=== PATIENT | male | born 1940 | race Caucasian/White ===

== ENCOUNTER 2017-10-13 12:24 | Inpatient (IN) | payer OTHER ==
[~2017-10-13] VITALS: Ht 170.2 cm; Wt 54.5 kg
[~2017-10-13 12:24] MED LIST: CHOL100062 PO; MAGN400C PO; MEMA10TA PO; METO25TA6 PO; OLAN2.5T3 PO; OMEP40CA37 PO; POLY119P2 PO; RIVA20TA PO; SIMV40TA PO; THIA250T2 PO
[2017-10-13] MEDS ORDERED: verapamil 2.5 mg/ml inj IV ONE (13:45)
[2017-10-13 13:59] LABS: BASOPHILS # (AUTO) 0.1 X10'3 (0-0.2); BASOPHILS % (AUTO) 0.7 % (0-1); EOSINOPHILS % (AUTO) 0.5 % (0-6); HEMATOCRIT 40.3 % (42.0-52.0); HEMOGLOBIN 13.6 g/dl (14.0-17.9); LYMPHOCYTES # (AUTO) 1.2 X10'3 (1.1-4.8); LYMPHOCYTES % (AUTO) 14.5 % (21-51); MEAN CORPUSCULAR HEMOGLOBIN 31.4 PG (27.0-31.0); MEAN CORPUSCULAR HGB CONC 33.7 % (33.0-36.5); MEAN CORPUSCULAR VOLUME 93.3 FL (78-98); MEAN PLATELET VOLUME 7.7 FL (7.4-10.4); MONOCYTES # (AUTO) 0.7 X10'3 (0-0.9); MONOCYTES % (AUTO) 8.6 % (2-12); NEUTROPHILS # (AUTO) 6.3 X10'3 (1.8-7.7); NEUTROPHILS % (AUTO) 75.7 % (42-75); PLATELET COUNT 320 X10'3 (140-440); RED BLOOD COUNT 4.32 X10'6 (4.70-6.10); RED CELL DISTRIBUTION WIDTH 15.4 % (11.5-14.5); WHITE BLOOD COUNT 8.3 X10'3 (4.5-11.0)
[2017-10-13 14:08] LABS: D-DIMER 1.93 MG/L FEU (0-0.50)
[2017-10-13 14:11] LABS: CLARITY,URINE CLOUDY (Clear); COLOR,URINE YELLOW (Yellow); GLUCOSE, URINE NEGATIVE (Neg); KETONES,URINE TRACE mg/dl (Neg); LEUKOCYTE ESTERASE ,URINE MODERATE (Neg); NITRITES, URINE NEGATIVE (Neg); OCCULT BLOOD,URINE LARGE (Neg); PROTEIN,URINE 100 mg/dl (Neg)
[2017-10-13 14:15] LABS: UA COLLECTION TYPE OTHER
[2017-10-13 14:15] LABS: ALANINE AMINOTRANSFERASE 15 U/L (12-78); ALBUMIN 3.4 G/DL (3.4-5.0); ALBUMIN/GLOBULIN RATIO 0.6 (1.1-1.5); ALKALINE PHOSPHATASE 69 IU/L (46-116); ANION GAP 12 (8-16); ASPARTATE AMINO TRANSFERASE 22 U/L (10-37); BILIRUBIN,TOTAL 0.5 MG/DL (0.1-1.0); BLOOD UREA NITROGEN 22 MG/DL (7-18); BUN/CREATININE RATIO 17.6 (5.4-32.0); CALCIUM 9.4 MG/DL (8.5-10.1); CHLORIDE 106 MMOL/L (99-107); CREATININE 1.25 MG/DL (0.60-1.10); GLUCOSE 118 MG/DL (70-104); POTASSIUM 3.6 MMOL/L (3.5-5.1); SODIUM 146 MMOL/L (135-145); TOTAL CARBON DIOXIDE 27.8 MMOL/L (24-32); TOTAL PROTEIN 8.9 G/DL (6.4-8.2); eGFR 56 ML/MIN
[2017-10-13 14:27] LABS: BACTERIA,URINE 4+ /HPF (Neg); SQUAMOUS EPITHELIAL CELL,UR FEW /LPF (FEW); WBC,URINE TNTC /HPF (0-4)
[2017-10-13 14:28] LABS: RBC,URINE 20-50 /HPF (0-2)
[2017-10-13] MEDS ORDERED: CefTRIAXone 2gm/D5W 50ml 50 ML IV ONE (15:10)
[2017-10-13] MEDS ORDERED: normal saline 1000ML IV soln IVB ONE (15:10)
[2017-10-13] MEDS ORDERED: iohexol 350MG/ML 100ml bottle IV ONE (15:19)
[2017-10-13] MEDS ORDERED: potassium Cl 20mEq in NS 1,000 ML IV SCH (15:32)
[2017-10-13] MEDS ORDERED: potassium Cl 40MEQ/NS 500ml 500 ML IV PRN ×2 (15:35)
[2017-10-13] MEDS ORDERED: magnesium hydroxide 30ml (MOM) UD suspension PO PRN (15:35)
[2017-10-13] MEDS ORDERED: magnesium 2GM in 50ml NS 50 ML IV PRN (15:35)
[2017-10-13] MEDS ORDERED: ondansetron/PF 4mg/2ml inj IV PRN (15:35)
[2017-10-13] MEDS ORDERED: potassium Cl 20 mEq SR tablet PO PRN ×2 (15:35)
[2017-10-13] MEDS ORDERED: mag hydrox/Alum hydrox/simeth 30ml oral suspension PO PRN (15:35)
[2017-10-13] MEDS ORDERED: magnesium 4gm in 100ml NS 100 ML IV PRN (15:35)
[2017-10-13] MEDS ORDERED: heparin 10,000 units/1 ML INJ IV ONE (15:35)
[2017-10-13] MEDS ORDERED: bisacodyl 10mg suppository rectal RC PRN (15:35)
[2017-10-13] MEDS ORDERED: acetaminophen 325mg tablet PO PRN (15:35)
[2017-10-13] MEDS ORDERED: magnesium Cl slow-release 64mg tablet PO PRN (15:35)
[2017-10-13] MEDS: folic acid 1mg tablet PO SCH (15:40)
[2017-10-13] MEDS ORDERED: LORazepam 2 mg/ml vial IV PRN ×2 (15:40→19:30)
[2017-10-13] MEDS: aspirin 325mg tablet, delayed-release (Ecotrin) PO SCH (15:45)
[2017-10-13] MEDS ORDERED: magnesium/D5W IVPB 100 ML IV PRN (15:45)
[2017-10-13] MEDS: potassium cl 20mEq in 1/2 NS 1,000 ML IV SCH (15:55)
[2017-10-13 16:03] LABS: PARTIAL THROMBOPLASTIN TIME 27 SECONDS (22-32)
[2017-10-13 16:04] LABS: CREATINE KINASE 111 U/L (39-308)
[2017-10-13 18:00] VITALS: BP 115/65
[2017-10-13] MEDS: diltiazem-NS 100mg/100ml 100 ML IV PRN (18:00)
[2017-10-13 19:00] VITALS: BP 120/60
[2017-10-13] MEDS: docusate sod 100mg capsule PO SCH (19:46)
[2017-10-13] MEDS: heparin, porcine 5000 units/ml vial SQ SCH (19:46)
[2017-10-13] MEDS: memantine 5mg tablet PO SCH (19:47)
[2017-10-13 21:00] VITALS: BP 147/102
[2017-10-13] MEDS: OLANZapine 2.5MG tablet PO SCH (21:00)
[2017-10-13] MEDS: atorvastatin 20mg tablet PO SCH (21:00)
[2017-10-13] MEDS: magnesium oxide 400mg tablet PO SCH (21:00)
[2017-10-13] MEDS: LORazepam 2 mg/ml vial IV PRN (22:10)
[2017-10-13] MEDS: thiamine 100mg tablet PO SCH (22:18)
[2017-10-13] MEDS: vitamin D (cholecalciferol) 1,000 unit tablet PO SCH (22:19)
[2017-10-13 23:00] VITALS: BP 138/73
[2017-10-14] VITALS (13 sets, daily range): BP systolic 98–165; BP diastolic 51–90
[2017-10-14] MEDS: LORazepam 2 mg/ml vial IV PRN ×2 (04:24→21:50)
[2017-10-14] MEDS: potassium cl 20mEq in 1/2 NS 1,000 ML IV SCH ×3 (04:25→21:25)
[2017-10-14 05:27] LABS: BASOPHILS % (AUTO) 0.4 % (0-1); EOSINOPHILS # (AUTO) 0.1 X10'3 (0-0.9); EOSINOPHILS % (AUTO) 1.5 % (0-6); HEMATOCRIT 35.6 % (42.0-52.0); HEMOGLOBIN 12.1 g/dl (14.0-17.9); LYMPHOCYTES # (AUTO) 1.5 X10'3 (1.1-4.8); LYMPHOCYTES % (AUTO) 22.1 % (21-51); MEAN CORPUSCULAR HEMOGLOBIN 31.5 PG (27.0-31.0); MEAN CORPUSCULAR HGB CONC 33.9 % (33.0-36.5); MEAN CORPUSCULAR VOLUME 92.9 FL (78-98); MEAN PLATELET VOLUME 7.6 FL (7.4-10.4); MONOCYTES # (AUTO) 0.6 X10'3 (0-0.9); MONOCYTES % (AUTO) 9.7 % (2-12); NEUTROPHILS # (AUTO) 4.3 X10'3 (1.8-7.7); NEUTROPHILS % (AUTO) 66.3 % (42-75); PLATELET COUNT 275 X10'3 (140-440); RED BLOOD COUNT 3.83 X10'6 (4.70-6.10); RED CELL DISTRIBUTION WIDTH 15.1 % (11.5-14.5); WHITE BLOOD COUNT 6.6 X10'3 (4.5-11.0)
[2017-10-14 05:39] LABS: ALBUMIN 2.9 G/DL (3.4-5.0); ANION GAP 12 (8-16); BLOOD UREA NITROGEN 22 MG/DL (7-18); BUN/CREATININE RATIO 23.9 (5.4-32.0); CALCIUM 8.9 MG/DL (8.5-10.1); CHLORIDE 109 MMOL/L (99-107); CREATININE 0.92 MG/DL (0.60-1.10); GLUCOSE 100 MG/DL (70-104); MAGNESIUM 1.8 MG/DL (1.5-2.4); POTASSIUM 3.6 MMOL/L (3.5-5.1); SODIUM 146 MMOL/L (135-145); TOTAL CARBON DIOXIDE 24.6 MMOL/L (24-32); eGFR 80 ML/MIN
[2017-10-14] MEDS: CefTRIAXone/D5W-Rocephin 1gm 50 ML IV SCH (07:12)
[2017-10-14] MEDS: diltiazem-NS 100mg/100ml 100 ML IV PRN (07:13)
[2017-10-14] MEDS: K and/or MAG REPLACEMENT MC SCH (09:26)
[2017-10-14] MEDS: docusate sod 100mg capsule PO SCH ×2 (09:26→19:29)
[2017-10-14] MEDS: aspirin 325mg tablet, delayed-release (Ecotrin) PO SCH (09:26)
[2017-10-14] MEDS: folic acid 1mg tablet PO SCH (09:27)
[2017-10-14] MEDS: polyethylene glycol 3350 17gm powd pack PO SCH (09:27)
[2017-10-14] MEDS: memantine 5mg tablet PO SCH ×2 (09:27→19:25)
[2017-10-14] MEDS: heparin, porcine 5000 units/ml vial SQ SCH ×2 (09:28→21:46)
[2017-10-14] MEDS: pantoprazole 40mg Tablet.DR PO SCH (09:28)
[2017-10-14] MEDS: diltiazem 30mg tablet PO SCH ×2 (13:50→19:25)
[2017-10-14] MEDS: lactobacillus rhamnosus 10,000 MMU CELLS/CAPSULE PO SCH (19:32)
[2017-10-14] MEDS: thiamine 100mg tablet PO SCH (20:27)
[2017-10-14] MEDS: magnesium oxide 400mg tablet PO SCH (20:27)
[2017-10-14] MEDS: vitamin D (cholecalciferol) 1,000 unit tablet PO SCH (20:27)
[2017-10-14] MEDS: OLANZapine 2.5MG tablet PO SCH (20:28)
[2017-10-14] MEDS: atorvastatin 20mg tablet PO SCH (20:28)
[2017-10-15] VITALS (13 sets, daily range): BP systolic 91–122; BP diastolic 52–93
[2017-10-15] MEDS: diltiazem-NS 100mg/100ml 100 ML IV PRN ×2 (01:56→11:00)
[2017-10-15] MEDS: diltiazem 30mg tablet PO SCH ×4 (01:56→20:07)
[2017-10-15 05:45] LABS: ALBUMIN 2.9 G/DL (3.4-5.0); ANION GAP 11 (8-16); BLOOD UREA NITROGEN 18 MG/DL (7-18); BUN/CREATININE RATIO 18.2 (5.4-32.0); CHLORIDE 106 MMOL/L (99-107); CREATININE 0.99 MG/DL (0.60-1.10); GLUCOSE 91 MG/DL (70-104); MAGNESIUM 1.8 MG/DL (1.5-2.4); POTASSIUM 4.1 MMOL/L (3.5-5.1); SODIUM 142 MMOL/L (135-145); TOTAL CARBON DIOXIDE 24.7 MMOL/L (24-32); eGFR 73 ML/MIN
[2017-10-15 05:46] LABS: BASOPHILS % (AUTO) 0 % (0-1); EOSINOPHILS # (AUTO) 0.1 X10'3 (0-0.9); EOSINOPHILS % (AUTO) 0.9 % (0-6); HEMATOCRIT 35.7 % (42.0-52.0); LYMPHOCYTES # (AUTO) 1.1 X10'3 (1.1-4.8); LYMPHOCYTES % (AUTO) 8.8 % (21-51); MEAN CORPUSCULAR HEMOGLOBIN 31.5 PG (27.0-31.0); MEAN CORPUSCULAR HGB CONC 33.7 % (33.0-36.5); MEAN CORPUSCULAR VOLUME 93.4 FL (78-98); MEAN PLATELET VOLUME 8.7 FL (7.4-10.4); MONOCYTES # (AUTO) 0.7 X10'3 (0-0.9); MONOCYTES % (AUTO) 5.1 % (2-12); NEUTROPHILS % (AUTO) 85.2 % (42-75); PLATELET COUNT 248 X10'3 (140-440); RED BLOOD COUNT 3.82 X10'6 (4.70-6.10); RED CELL DISTRIBUTION WIDTH 15.1 % (11.5-14.5)
[2017-10-15] MEDS: lactobacillus rhamnosus 10,000 MMU CELLS/CAPSULE PO SCH ×3 (07:50→20:08)
[2017-10-15] MEDS: pantoprazole 40mg Tablet.DR PO SCH ×2 (07:50→08:00)
[2017-10-15] MEDS: docusate sod 100mg capsule PO SCH ×3 (07:50→20:07)
[2017-10-15] MEDS: aspirin 325mg tablet, delayed-release (Ecotrin) PO SCH (07:50)
[2017-10-15] MEDS: folic acid 1mg tablet PO SCH (07:50)
[2017-10-15] MEDS: memantine 5mg tablet PO SCH ×2 (07:50→20:07)
[2017-10-15] MEDS: CefTRIAXone/D5W-Rocephin 1gm 50 ML IV SCH (07:51)
[2017-10-15] MEDS: HYDROcodone/acetaminophen 5mg/325mg tablet PO PRN (07:51)
[2017-10-15] MEDS: heparin, porcine 5000 units/ml vial SQ SCH ×2 (08:00→20:12)
[2017-10-15] MEDS: K and/or MAG REPLACEMENT MC SCH (08:00)
[2017-10-15] MEDS: polyethylene glycol 3350 17gm powd pack PO SCH (08:05)
[2017-10-15] MEDS: levoFLOXACIN-Levaquin 250mg/D5 50 ML IV SCH (09:19)
[2017-10-15] MEDS: potassium cl 20mEq in 1/2 NS 1,000 ML IV SCH ×2 (11:20→23:38)
[2017-10-15] MEDS: vitamin D (cholecalciferol) 1,000 unit tablet PO SCH (20:07)
[2017-10-15] MEDS: magnesium oxide 400mg tablet PO SCH (20:09)
[2017-10-15] MEDS: thiamine 100mg tablet PO SCH (20:09)
[2017-10-15] MEDS: atorvastatin 20mg tablet PO SCH (20:10)
[2017-10-15] MEDS: OLANZapine 2.5MG tablet PO SCH (20:10)
[2017-10-16] VITALS (12 sets, daily range): BP systolic 92–145; BP diastolic 48–94
[2017-10-16] MEDS: diltiazem 30mg tablet PO SCH ×4 (03:47→19:35)
[2017-10-16] MEDS: diltiazem-NS 100mg/100ml 100 ML IV PRN (03:52)
[2017-10-16 05:39] LABS: BASOPHILS # (AUTO) 0.1 X10'3 (0-0.2); BASOPHILS % (AUTO) 0.6 % (0-1); EOSINOPHILS # (AUTO) 0.2 X10'3 (0-0.9); EOSINOPHILS % (AUTO) 2.1 % (0-6); HEMATOCRIT 32.7 % (42.0-52.0); LYMPHOCYTES # (AUTO) 1.3 X10'3 (1.1-4.8); LYMPHOCYTES % (AUTO) 16.3 % (21-51); MEAN CORPUSCULAR HEMOGLOBIN 31.1 PG (27.0-31.0); MEAN CORPUSCULAR HGB CONC 33.5 % (33.0-36.5); MEAN CORPUSCULAR VOLUME 92.9 FL (78-98); MEAN PLATELET VOLUME 8.3 FL (7.4-10.4); MONOCYTES # (AUTO) 0.4 X10'3 (0-0.9); MONOCYTES % (AUTO) 4.7 % (2-12); NEUTROPHILS # (AUTO) 6.1 X10'3 (1.8-7.7); NEUTROPHILS % (AUTO) 76.3 % (42-75); PLATELET COUNT 231 X10'3 (140-440); RED BLOOD COUNT 3.52 X10'6 (4.70-6.10); RED CELL DISTRIBUTION WIDTH 15.1 % (11.5-14.5)
[2017-10-16 05:43] LABS: ALBUMIN 2.7 G/DL (3.4-5.0); ANION GAP 10 (8-16); BLOOD UREA NITROGEN 10 MG/DL (7-18); BUN/CREATININE RATIO 14.7 (5.4-32.0); CALCIUM 8.4 MG/DL (8.5-10.1); CHLORIDE 103 MMOL/L (99-107); CREATININE 0.68 MG/DL (0.60-1.10); GLUCOSE 106 MG/DL (70-104); MAGNESIUM 1.9 MG/DL (1.5-2.4); POTASSIUM 3.7 MMOL/L (3.5-5.1); SODIUM 138 MMOL/L (135-145); TOTAL CARBON DIOXIDE 25.3 MMOL/L (24-32); eGFR > 90 ML/MIN
[2017-10-16] MEDS: K and/or MAG REPLACEMENT MC SCH (07:35)
[2017-10-16] MEDS: lactobacillus rhamnosus 10,000 MMU CELLS/CAPSULE PO SCH ×2 (07:59→19:35)
[2017-10-16] MEDS: folic acid 1mg tablet PO SCH (07:59)
[2017-10-16] MEDS: pantoprazole 40mg Tablet.DR PO SCH (07:59)
[2017-10-16] MEDS: polyethylene glycol 3350 17gm powd pack PO SCH (07:59)
[2017-10-16] MEDS: docusate sod 100mg capsule PO SCH ×2 (07:59→19:36)
[2017-10-16] MEDS: aspirin 325mg tablet, delayed-release (Ecotrin) PO SCH (07:59)
[2017-10-16] MEDS: levoFLOXACIN-Levaquin 250mg/D5 50 ML IV SCH (08:00)
[2017-10-16] MEDS: memantine 5mg tablet PO SCH ×2 (08:00→19:35)
[2017-10-16] MEDS: heparin, porcine 5000 units/ml vial SQ SCH ×2 (08:10→19:36)
[2017-10-16] MEDS: atorvastatin 20mg tablet PO SCH (19:35)
[2017-10-16] MEDS: magnesium oxide 400mg tablet PO SCH (19:36)
[2017-10-16] MEDS: thiamine 100mg tablet PO SCH (19:36)
[2017-10-16] MEDS: vitamin D (cholecalciferol) 1,000 unit tablet PO SCH (19:36)
[2017-10-16] MEDS: OLANZapine 2.5MG tablet PO SCH (19:36)
[2017-10-16] MEDS: HYDROcodone/acetaminophen 5mg/325mg tablet PO PRN (23:09)
[2017-10-17] MEDS: potassium cl 20mEq in 1/2 NS 1,000 ML IV SCH ×3 (00:06→21:07)
[2017-10-17] MEDS: LORazepam 2 mg/ml vial IV PRN (00:06)
[2017-10-17] MEDS: diltiazem 30mg tablet PO SCH ×4 (02:21→21:07)
[2017-10-17 03:00] VITALS: BP 140/70
[2017-10-17 06:00] VITALS: BP 135/94
[2017-10-17 06:19] LABS: BASOPHILS % (AUTO) 0.3 % (0-1); EOSINOPHILS # (AUTO) 0.2 X10'3 (0-0.9); EOSINOPHILS % (AUTO) 2.6 % (0-6); LYMPHOCYTES # (AUTO) 1.3 X10'3 (1.1-4.8); LYMPHOCYTES % (AUTO) 21.4 % (21-51); MEAN CORPUSCULAR HEMOGLOBIN 31.6 PG (27.0-31.0); MEAN CORPUSCULAR HGB CONC 34.1 % (33.0-36.5); MEAN CORPUSCULAR VOLUME 92.4 FL (78-98); MEAN PLATELET VOLUME 8.2 FL (7.4-10.4); MONOCYTES # (AUTO) 0.5 X10'3 (0-0.9); MONOCYTES % (AUTO) 8.2 % (2-12); NEUTROPHILS # (AUTO) 4.2 X10'3 (1.8-7.7); NEUTROPHILS % (AUTO) 67.5 % (42-75); PLATELET COUNT 247 X10'3 (140-440); RED BLOOD COUNT 3.79 X10'6 (4.70-6.10); RED CELL DISTRIBUTION WIDTH 15.2 % (11.5-14.5); WHITE BLOOD COUNT 6.3 X10'3 (4.5-11.0)
[2017-10-17 06:36] LABS: ALBUMIN 2.9 G/DL (3.4-5.0); ANION GAP 10 (8-16); BLOOD UREA NITROGEN 5 MG/DL (7-18); BUN/CREATININE RATIO 7.7 (5.4-32.0); CHLORIDE 106 MMOL/L (99-107); CREATININE 0.65 MG/DL (0.60-1.10); GLUCOSE 101 MG/DL (70-104); MAGNESIUM 2.1 MG/DL (1.5-2.4); POTASSIUM 4.1 MMOL/L (3.5-5.1); SODIUM 142 MMOL/L (135-145); TOTAL CARBON DIOXIDE 26.2 MMOL/L (24-32); eGFR > 90 ML/MIN
[2017-10-17] MEDS: K and/or MAG REPLACEMENT MC SCH (08:00)
[2017-10-17] MEDS: levoFLOXACIN-Levaquin 250mg/D5 50 ML IV SCH (08:22)
[2017-10-17] MEDS: memantine 5mg tablet PO SCH ×2 (08:23→21:07)
[2017-10-17] MEDS: aspirin 325mg tablet, delayed-release (Ecotrin) PO SCH (08:23)
[2017-10-17] MEDS: heparin, porcine 5000 units/ml vial SQ SCH ×2 (08:23→21:08)
[2017-10-17] MEDS: polyethylene glycol 3350 17gm powd pack PO SCH (08:23)
[2017-10-17] MEDS: lactobacillus rhamnosus 10,000 MMU CELLS/CAPSULE PO SCH ×2 (08:24→21:07)
[2017-10-17] MEDS: pantoprazole 40mg Tablet.DR PO SCH (08:24)
[2017-10-17] MEDS: folic acid 1mg tablet PO SCH (08:24)
[2017-10-17] MEDS: docusate sod 100mg capsule PO SCH ×2 (08:24→21:07)
[2017-10-17 11:00] VITALS: BP 121/73
[2017-10-17 15:00] VITALS: BP 128/62
[2017-10-17 18:00] VITALS: BP 129/92
[2017-10-17] MEDS: OLANZapine 2.5MG tablet PO SCH (21:07)
[2017-10-17] MEDS: magnesium oxide 400mg tablet PO SCH (21:07)
[2017-10-17] MEDS: vitamin D (cholecalciferol) 1,000 unit tablet PO SCH (21:07)
[2017-10-17] MEDS: thiamine 100mg tablet PO SCH (21:07)
[2017-10-17] MEDS: atorvastatin 20mg tablet PO SCH (21:07)
[2017-10-17 22:00] VITALS: BP 101/60
[2017-10-18] MEDS: LORazepam 2 mg/ml vial IV PRN (00:40)
[2017-10-18 02:00] VITALS: BP 156/79
[2017-10-18] MEDS: diltiazem 30mg tablet PO SCH ×4 (02:17→20:09)
[2017-10-18 05:58] LABS: BASOPHILS % (AUTO) 0.2 % (0-1); EOSINOPHILS # (AUTO) 0.1 X10'3 (0-0.9); EOSINOPHILS % (AUTO) 1.8 % (0-6); HEMATOCRIT 35.8 % (42.0-52.0); HEMOGLOBIN 12.2 g/dl (14.0-17.9); LYMPHOCYTES # (AUTO) 1.4 X10'3 (1.1-4.8); LYMPHOCYTES % (AUTO) 19.6 % (21-51); MEAN CORPUSCULAR HEMOGLOBIN 31.5 PG (27.0-31.0); MEAN CORPUSCULAR VOLUME 92.6 FL (78-98); MEAN PLATELET VOLUME 7.8 FL (7.4-10.4); MONOCYTES # (AUTO) 0.5 X10'3 (0-0.9); MONOCYTES % (AUTO) 6.4 % (2-12); NEUTROPHILS # (AUTO) 5.3 X10'3 (1.8-7.7); PLATELET COUNT 307 X10'3 (140-440); RED BLOOD COUNT 3.87 X10'6 (4.70-6.10); RED CELL DISTRIBUTION WIDTH 15.2 % (11.5-14.5); WHITE BLOOD COUNT 7.3 X10'3 (4.5-11.0)
[2017-10-18 06:26] LABS: ALBUMIN 3.1 G/DL (3.4-5.0); ANION GAP 9 (8-16); BLOOD UREA NITROGEN 8 MG/DL (7-18); BUN/CREATININE RATIO 10.1 (5.4-32.0); CALCIUM 9.4 MG/DL (8.5-10.1); CHLORIDE 104 MMOL/L (99-107); CREATININE 0.79 MG/DL (0.60-1.10); GLUCOSE 100 MG/DL (70-104); POTASSIUM 3.8 MMOL/L (3.5-5.1); SODIUM 141 MMOL/L (135-145); TOTAL CARBON DIOXIDE 27.6 MMOL/L (24-32); eGFR > 90 ML/MIN
[2017-10-18] MEDS: K and/or MAG REPLACEMENT MC SCH (06:35)
[2017-10-18 07:06] VITALS: BP 154/131
[2017-10-18] MEDS: aspirin 325mg tablet, delayed-release (Ecotrin) PO SCH (09:43)
[2017-10-18] MEDS: docusate sod 100mg capsule PO SCH ×2 (09:43→20:08)
[2017-10-18] MEDS: memantine 5mg tablet PO SCH ×2 (09:43→20:09)
[2017-10-18] MEDS: heparin, porcine 5000 units/ml vial SQ SCH ×2 (09:44→20:10)
[2017-10-18] MEDS: polyethylene glycol 3350 17gm powd pack PO SCH (09:44)
[2017-10-18] MEDS: pantoprazole 40mg Tablet.DR PO SCH (09:44)
[2017-10-18] MEDS: folic acid 1mg tablet PO SCH (09:44)
[2017-10-18] MEDS: lactobacillus rhamnosus 10,000 MMU CELLS/CAPSULE PO SCH ×2 (09:44→20:09)
[2017-10-18] MEDS: potassium cl 20mEq in 1/2 NS 1,000 ML IV SCH ×2 (09:52→20:55)
[2017-10-18] MEDS: levoFLOXACIN 250mg tablet PO SCH (10:26)
[2017-10-18] MEDS: HYDROcodone/acetaminophen 5mg/325mg tablet PO PRN (10:26)
[2017-10-18 11:40] VITALS: BP 137/109
[2017-10-18 16:01] VITALS: BP 107/68
[2017-10-18 19:00] VITALS: BP 116/63
[2017-10-18] MEDS: OLANZapine 2.5MG tablet PO SCH (20:08)
[2017-10-18] MEDS: magnesium oxide 400mg tablet PO SCH (20:08)
[2017-10-18] MEDS: atorvastatin 20mg tablet PO SCH (20:09)
[2017-10-18] MEDS: vitamin D (cholecalciferol) 1,000 unit tablet PO SCH (20:09)
[2017-10-18] MEDS: thiamine 100mg tablet PO SCH (20:09)
[2017-10-18 23:00] VITALS: BP 124/68
[2017-10-18] MEDS ORDERED: haloperidol lactate 5mg/ml inj IM ONE (23:55)
[2017-10-19] VITALS (7 sets, daily range): BP systolic 119–159; BP diastolic 57–103
[2017-10-19] MEDS: diltiazem 30mg tablet PO SCH ×4 (02:00→20:19)
[2017-10-19] MEDS: lactobacillus rhamnosus 10,000 MMU CELLS/CAPSULE PO SCH ×2 (07:59→20:18)
[2017-10-19] MEDS: docusate sod 100mg capsule PO SCH ×2 (07:59→20:18)
[2017-10-19] MEDS: folic acid 1mg tablet PO SCH (07:59)
[2017-10-19] MEDS: heparin, porcine 5000 units/ml vial SQ SCH ×2 (07:59→20:20)
[2017-10-19] MEDS: pantoprazole 40mg Tablet.DR PO SCH (07:59)
[2017-10-19] MEDS: aspirin 325mg tablet, delayed-release (Ecotrin) PO SCH (07:59)
[2017-10-19] MEDS: polyethylene glycol 3350 17gm powd pack PO SCH (07:59)
[2017-10-19] MEDS: memantine 5mg tablet PO SCH ×2 (07:59→20:17)
[2017-10-19] MEDS: K and/or MAG REPLACEMENT MC SCH (08:00)
[2017-10-19] MEDS: potassium cl 20mEq in 1/2 NS 1,000 ML IV SCH ×2 (09:44→22:40)
[2017-10-19] MEDS: acetaminophen 325mg tablet PO PRN ×2 (09:50→20:22)
[2017-10-19] MEDS: levoFLOXACIN 250mg tablet PO SCH (11:08)
[2017-10-19] MEDS: atorvastatin 20mg tablet PO SCH (20:14)
[2017-10-19] MEDS: magnesium oxide 400mg tablet PO SCH (20:14)
[2017-10-19] MEDS: thiamine 100mg tablet PO SCH (20:16)
[2017-10-19] MEDS: vitamin D (cholecalciferol) 1,000 unit tablet PO SCH (20:16)
[2017-10-19] MEDS: OLANZapine 2.5MG tablet PO SCH (20:16)
[2017-10-20 02:00] VITALS: BP 133/73
[2017-10-20] MEDS: diltiazem 30mg tablet PO SCH ×4 (04:18→20:49)
[2017-10-20] MEDS: acetaminophen 325mg tablet PO PRN ×2 (04:19→13:02)
[2017-10-20 06:00] VITALS: BP 138/71
[2017-10-20] MEDS: lactobacillus rhamnosus 10,000 MMU CELLS/CAPSULE PO SCH ×2 (07:36→20:49)
[2017-10-20] MEDS: folic acid 1mg tablet PO SCH (07:36)
[2017-10-20] MEDS: polyethylene glycol 3350 17gm powd pack PO SCH (07:36)
[2017-10-20] MEDS: aspirin 325mg tablet, delayed-release (Ecotrin) PO SCH (07:36)
[2017-10-20] MEDS: docusate sod 100mg capsule PO SCH ×2 (07:36→20:49)
[2017-10-20] MEDS: memantine 5mg tablet PO SCH ×2 (07:37→20:49)
[2017-10-20] MEDS: pantoprazole 40mg Tablet.DR PO SCH (07:37)
[2017-10-20] MEDS: heparin, porcine 5000 units/ml vial SQ SCH ×2 (07:38→20:50)
[2017-10-20] MEDS: K and/or MAG REPLACEMENT MC SCH (07:52)
[2017-10-20] MEDS: potassium cl 20mEq in 1/2 NS 1,000 ML IV SCH (10:25)
[2017-10-20 11:30] VITALS: BP 136/84
[2017-10-20] MEDS: levoFLOXACIN 250mg tablet PO SCH (12:12)
[2017-10-20 15:00] VITALS: BP 115/96
[2017-10-20 19:00] VITALS: BP 131/68
[2017-10-20] MEDS: OLANZapine 2.5MG tablet PO SCH (20:49)
[2017-10-20] MEDS: atorvastatin 20mg tablet PO SCH (20:49)
[2017-10-20] MEDS: magnesium oxide 400mg tablet PO SCH (20:49)
[2017-10-20] MEDS: thiamine 100mg tablet PO SCH (20:50)
[2017-10-20] MEDS: vitamin D (cholecalciferol) 1,000 unit tablet PO SCH (20:50)
[2017-10-20 23:00] VITALS: BP 103/56
[2017-10-21] MEDS: diltiazem 30mg tablet PO SCH ×3 (02:03→13:57)
[2017-10-21 03:00] VITALS: BP 132/74
[2017-10-21 06:00] VITALS: BP 138/46
[2017-10-21] MEDS: K and/or MAG REPLACEMENT MC SCH (07:11)
[2017-10-21] MEDS: lactobacillus rhamnosus 10,000 MMU CELLS/CAPSULE PO SCH (07:43)
[2017-10-21] MEDS: docusate sod 100mg capsule PO SCH (07:43)
[2017-10-21] MEDS: memantine 5mg tablet PO SCH (07:43)
[2017-10-21] MEDS: polyethylene glycol 3350 17gm powd pack PO SCH (07:43)
[2017-10-21] MEDS: pantoprazole 40mg Tablet.DR PO SCH (07:43)
[2017-10-21] MEDS: folic acid 1mg tablet PO SCH (07:43)
[2017-10-21] MEDS: heparin, porcine 5000 units/ml vial SQ SCH (07:43)
[2017-10-21] MEDS: aspirin 325mg tablet, delayed-release (Ecotrin) PO SCH (07:44)
[2017-10-21] MEDS: levoFLOXACIN 250mg tablet PO SCH (10:56)
[2017-10-21 11:00] VITALS: BP 124/60
== END 2017-10-21 14:00 | DRG 698 ==
LOC: ER 12:25 → ED HOLD 15:32 → PCU 3S 17:15
PROVIDERS: ADMIT Internal Medicine; ATTEND Family Medicine
PROC: CB221ZZ Tomographic (Tomo) Nuclear Medicine Imaging of Lungs and Bronchi using Technetium 99m (Tc-99m) (ICD-10-PCS; principal; 2017-10-13)
DX: T83.511A Infection and inflammatory reaction due to indwelling urethral catheter, initial encounter (principal); G93.40 Encephalopathy, unspecified; N17.9 Acute kidney failure, unspecified; E51.2 Wernicke's encephalopathy; E87.1 Hypo-osmolality and hyponatremia; I48.1 Persistent atrial fibrillation; G91.2 (Idiopathic) normal pressure hydrocephalus; N39.0 Urinary tract infection, site not specified; D64.9 Anemia, unspecified; E78.5 Hyperlipidemia, unspecified; B95.2 Enterococcus as the cause of diseases classified elsewhere; F10.97 Alcohol use, unspecified with alcohol-induced persisting dementia; M25.551 Pain in right hip; Y73.2 Prosthetic and other implants, materials and accessory gastroenterology and urology devices associated with adverse incidents; M54.5 Low back pain; E86.0 Dehydration; B96.20 Unspecified Escherichia coli [E. coli] as the cause of diseases classified elsewhere; F02.80 Dementia in other diseases classified elsewhere, unspecified severity, without behavioral disturbance, psychotic disturbance, mood disturbance, and anxiety; G30.9 Alzheimer's disease, unspecified; I10 Essential (primary) hypertension; I25.10 Atherosclerotic heart disease of native coronary artery without angina pectoris; M48.02 Spinal stenosis, cervical region; R29.6 Repeated falls; R79.1 Abnormal coagulation profile; Z99.3 Dependence on wheelchair; Z95.1 Presence of aortocoronary bypass graft; I25.2 Old myocardial infarction; Z91.041 Radiographic dye allergy status; Z79.82 Long term (current) use of aspirin; Z79.01 Long term (current) use of anticoagulants; Y92.89 Other specified places as the place of occurrence of the external cause; Z87.440 Personal history of urinary (tract) infections; Z87.891 Personal history of nicotine dependence
CPT/HCPCS: 36415; 70450; 71045; 73502; 78582; 80048; 80053; 81001; 82550; 83735; 84439; 84443; 84484; 85025; 85379; 85730; 87040; 87070; 87077; 87088; 87186; 93005; 97110; 97161; 97530; A6213; A9539; A9540; J0696; J1630; J1644; J1956; J2060; J2405; J3490; J7030; Q9967

== ENCOUNTER 2017-12-30 12:52 | Inpatient (IN) | payer OTHER ==
[~2017-12-30] VITALS: Ht 172.7 cm; Wt 49.5 kg
[~2017-12-30 12:52] MED LIST changes: -CHOL100062 PO; -MEMA10TA PO; -OLAN2.5T3 PO; -RIVA20TA PO; -THIA250T2 PO
[2017-12-30] MEDS ORDERED: normal saline 1000ML IV soln IVB ONE (14:00)
[2017-12-30 15:31] LABS: CLARITY,URINE CLOUDY (Clear); COLOR,URINE YELLOW (Yellow); GLUCOSE, URINE NEGATIVE (Neg); KETONES,URINE TRACE mg/dl (Neg); LEUKOCYTE ESTERASE ,URINE MODERATE (Neg); NITRITES, URINE NEGATIVE (Neg); OCCULT BLOOD,URINE LARGE (Neg); PH,URINE 5.5 (4.8-8.0); PROTEIN,URINE 30 mg/dl (Neg); UROBILINOGEN,URINE 0.2 E.U/dL (0.2-1.0)
[2017-12-30 15:32] LABS: UA COLLECTION TYPE FOLEY CATH
[2017-12-30 15:38] LABS: RBC,URINE 50-100 /HPF (0-2); WBC,URINE TNTC /HPF (0-4)
[2017-12-30 15:39] LABS: BACTERIA,URINE 1+ /HPF (Neg); CAL OXALATE CRYSTALS 1+ /HPF (NEGATIVE); SQUAMOUS EPITHELIAL CELL,UR FEW /LPF (FEW); YEAST MANY /HPF (NEGATIVE)
[2017-12-30] MEDS ORDERED: CEPH500C5 PO ×2 (15:48→15:49)
[2017-12-30] MEDS ORDERED: CefTRIAXone 2gm/D5W 50ml 50 ML IV ONE (15:50)
[2017-12-30 16:18] LABS: BASOPHILS % (AUTO) 0.2 % (0-1); EOSINOPHILS # (AUTO) 0.2 X10'3 (0-0.9); EOSINOPHILS % (AUTO) 2.7 % (0-6); HEMATOCRIT 29.9 % (42.0-52.0); LYMPHOCYTES # (AUTO) 1.4 X10'3 (1.1-4.8); LYMPHOCYTES % (AUTO) 19.4 % (21-51); MEAN CORPUSCULAR HEMOGLOBIN 31.4 PG (27.0-31.0); MEAN CORPUSCULAR HGB CONC 33.4 % (33.0-36.5); MEAN PLATELET VOLUME 7.5 FL (7.4-10.4); MONOCYTES # (AUTO) 0.6 X10'3 (0-0.9); MONOCYTES % (AUTO) 8.2 % (2-12); NEUTROPHILS # (AUTO) 5.1 X10'3 (1.8-7.7); NEUTROPHILS % (AUTO) 69.5 % (42-75); PLATELET COUNT 257 X10'3 (140-440); RED BLOOD COUNT 3.18 X10'6 (4.70-6.10); RED CELL DISTRIBUTION WIDTH 15.1 % (11.5-14.5); WHITE BLOOD COUNT 7.3 X10'3 (4.5-11.0)
[2017-12-30 16:44] LABS: ALBUMIN 2.9 G/DL (3.4-5.0); ALBUMIN/GLOBULIN RATIO 0.7 (1.1-1.5); ANION GAP 10 (8-16); BILIRUBIN,TOTAL 0.4 MG/DL (0.1-1.0); BLOOD UREA NITROGEN 15 MG/DL (7-18); CALCIUM 8.1 MG/DL (8.5-10.1); CHLORIDE 106 MMOL/L (99-107); CREATININE 0.75 MG/DL (0.60-1.10); GLUCOSE 93 MG/DL (70-104); POTASSIUM 3.4 MMOL/L (3.5-5.1); SODIUM 139 MMOL/L (135-145); TOTAL CARBON DIOXIDE 22.8 MMOL/L (24-32); TOTAL PROTEIN 6.8 G/DL (6.4-8.2); eGFR > 90 ML/MIN
[2017-12-30 16:45] LABS: ALANINE AMINOTRANSFERASE 23 U/L (12-78); ALKALINE PHOSPHATASE 47 IU/L (46-116); ASPARTATE AMINO TRANSFERASE 18 U/L (10-37)
[2017-12-30] MEDS ORDERED: mag hydrox/Alum hydrox/simeth 30ml oral suspension PO PRN (16:45)
[2017-12-30] MEDS ORDERED: magnesium 1gm/100ml D5W IVPB 100 ML IV PRN (16:45)
[2017-12-30] MEDS ORDERED: magnesium hydroxide 30ml (MOM) UD suspension PO PRN (16:45)
[2017-12-30] MEDS ORDERED: ondansetron/PF 4mg/2ml inj IV PRN (16:45)
[2017-12-30] MEDS ORDERED: magnesium 4gm in 100ml NS 100 ML IV PRN (16:45)
[2017-12-30] MEDS ORDERED: potassium Cl 40MEQ/NS 500ml 500 ML IV PRN ×2 (16:45)
[2017-12-30] MEDS ORDERED: acetaminophen 325mg tablet PO PRN ×2 (16:45)
[2017-12-30] MEDS ORDERED: potassium Cl 20 mEq SR tablet PO PRN ×2 (16:45)
[2017-12-30] MEDS ORDERED: magnesium Cl slow-release 64mg tablet PO PRN (16:45)
[2017-12-30] MEDS: normal saline 1000ml 1,000 ML IV SCH (17:19)
[2017-12-30] MEDS ORDERED: diphenhydrAMINE 50 mg/ml inj IV ONE (17:35)
[2017-12-30] MEDS ORDERED: LORA-269 PO (17:48)
[2017-12-30] MEDS ORDERED: HYDR-3965 PO (17:48)
[2017-12-30] MEDS ORDERED: ASPI-1265 PO (19:36)
[2017-12-30] MEDS ORDERED: SIMV20TA5 PO (19:36)
[2017-12-30] MEDS: LORazepam 0.5 MG tablet PO PRN (20:14)
[2017-12-30] MEDS: HYDROcodone/acetaminophen 5mg/325mg tablet PO PRN (20:14)
[2017-12-30] MEDS ORDERED: vancomycin/NS 1 GM ADD-VANTAGE 250 ML X 1 DOSE IV ONE (20:35)
[2017-12-30] MEDS ORDERED: metoprolol tartrate 25mg tablet PO SCH (21:00)
[2017-12-30] MEDS ORDERED: atorvastatin 20mg tablet PO SCH (21:00)
[2017-12-30] MEDS ORDERED: magnesium oxide 400mg tablet PO SCH (21:00)
[2017-12-30] MEDS: heparin, porcine 5000 units/ml vial SQ SCH (21:07)
[2017-12-30 21:30] VITALS: BP 115/70
[2017-12-31] VITALS: BP 119/64
[2017-12-31 04:42] LABS: BASOPHILS % (AUTO) 0.4 % (0-1); EOSINOPHILS # (AUTO) 0.3 X10'3 (0-0.9); EOSINOPHILS % (AUTO) 5.1 % (0-6); HEMATOCRIT 33.9 % (42.0-52.0); HEMOGLOBIN 11.2 g/dl (14.0-17.9); LYMPHOCYTES # (AUTO) 1.4 X10'3 (1.1-4.8); LYMPHOCYTES % (AUTO) 23.3 % (21-51); MEAN CORPUSCULAR HEMOGLOBIN 30.9 PG (27.0-31.0); MEAN CORPUSCULAR VOLUME 93.8 FL (78-98); MEAN PLATELET VOLUME 7.4 FL (7.4-10.4); MONOCYTES # (AUTO) 0.4 X10'3 (0-0.9); NEUTROPHILS # (AUTO) 3.8 X10'3 (1.8-7.7); NEUTROPHILS % (AUTO) 64.2 % (42-75); PLATELET COUNT 237 X10'3 (140-440); RED BLOOD COUNT 3.61 X10'6 (4.70-6.10); RED CELL DISTRIBUTION WIDTH 15.5 % (11.5-14.5); WHITE BLOOD COUNT 5.9 X10'3 (4.5-11.0)
[2017-12-31 04:57] LABS: ALANINE AMINOTRANSFERASE 15 U/L (12-78); ALBUMIN/GLOBULIN RATIO 0.7 (1.1-1.5); ALKALINE PHOSPHATASE 48 IU/L (46-116); ANION GAP 9 (8-16); ASPARTATE AMINO TRANSFERASE 20 U/L (10-37); BILIRUBIN,TOTAL 0.4 MG/DL (0.1-1.0); BLOOD UREA NITROGEN 12 MG/DL (7-18); BUN/CREATININE RATIO 15.2 (5.4-32.0); CALCIUM 8.7 MG/DL (8.5-10.1); CHLORIDE 106 MMOL/L (99-107); CREATININE 0.79 MG/DL (0.60-1.10); GLUCOSE 85 MG/DL (70-104); MAGNESIUM 1.8 MG/DL (1.5-2.4); POTASSIUM 3.6 MMOL/L (3.5-5.1); SODIUM 139 MMOL/L (135-145); TOTAL CARBON DIOXIDE 24.3 MMOL/L (24-32); TOTAL PROTEIN 7.3 G/DL (6.4-8.2); eGFR > 90 ML/MIN
[2017-12-31 07:00] VITALS: BP 133/65
[2017-12-31] MEDS ORDERED: CefTRIAXone/D5W-Rocephin 1gm 50 ML IV SCH (08:00)
[2017-12-31] MEDS: K and/or MAG REPLACEMENT MC SCH (08:00)
[2017-12-31] MEDS: aspirin 81mg tab.chew PO SCH (08:10)
[2017-12-31] MEDS: normal saline 1000ml 1,000 ML IV SCH ×2 (08:10→23:48)
[2017-12-31] MEDS: heparin, porcine 5000 units/ml vial SQ SCH ×2 (08:10→20:15)
[2017-12-31] MEDS ORDERED: VANCOMYCIN 750MG IV in NS 250 ML IV SCH (09:00)
[2017-12-31 11:00] VITALS: BP 98/58
[2017-12-31] MEDS: LORazepam 0.5 MG tablet PO PRN (18:38)
[2017-12-31] MEDS: lactobacillus rhamnosus 10,000 MMU CELLS/CAPSULE PO SCH (19:27)
[2017-12-31] MEDS: HYDROcodone/acetaminophen 5mg/325mg tablet PO PRN (19:28)
[2017-12-31 20:00] VITALS: BP 109/51
[2017-12-31] MEDS: metoprolol tartrate 25mg tablet PO SCH (20:00)
[2017-12-31] MEDS: atorvastatin 20mg tablet PO SCH (20:14)
[2017-12-31] MEDS: magnesium oxide 400mg tablet PO SCH (20:15)
[2017-12-31] MEDS: vancomycin/NS 1 GM ADD-VANTAGE 250 ML IV SCH (20:55)
[2018-01-01] VITALS: BP 125/68
[2018-01-01] MEDS: LORazepam 0.5 MG tablet PO PRN ×2 (03:22→18:02)
[2018-01-01] MEDS: HYDROcodone/acetaminophen 5mg/325mg tablet PO PRN ×2 (03:22→13:40)
[2018-01-01 05:43] LABS: BASOPHILS % (AUTO) 0.7 % (0-1); EOSINOPHILS # (AUTO) 0.3 X10'3 (0-0.9); EOSINOPHILS % (AUTO) 4.5 % (0-6); HEMATOCRIT 29.2 % (42.0-52.0); HEMOGLOBIN 9.8 g/dl (14.0-17.9); LYMPHOCYTES # (AUTO) 1.4 X10'3 (1.1-4.8); LYMPHOCYTES % (AUTO) 21.3 % (21-51); MEAN CORPUSCULAR HEMOGLOBIN 31.2 PG (27.0-31.0); MEAN CORPUSCULAR HGB CONC 33.4 % (33.0-36.5); MEAN CORPUSCULAR VOLUME 93.2 FL (78-98); MEAN PLATELET VOLUME 7.9 FL (7.4-10.4); MONOCYTES # (AUTO) 0.5 X10'3 (0-0.9); MONOCYTES % (AUTO) 7.5 % (2-12); NEUTROPHILS # (AUTO) 4.2 X10'3 (1.8-7.7); PLATELET COUNT 217 X10'3 (140-440); RED BLOOD COUNT 3.13 X10'6 (4.70-6.10); RED CELL DISTRIBUTION WIDTH 15.6 % (11.5-14.5); WHITE BLOOD COUNT 6.4 X10'3 (4.5-11.0)
[2018-01-01 06:08] LABS: ALANINE AMINOTRANSFERASE 17 U/L (12-78); ALBUMIN 2.5 G/DL (3.4-5.0); ALBUMIN/GLOBULIN RATIO 0.6 (1.1-1.5); ALKALINE PHOSPHATASE 45 IU/L (46-116); ANION GAP 7 (8-16); ASPARTATE AMINO TRANSFERASE 14 U/L (10-37); BILIRUBIN,TOTAL 0.3 MG/DL (0.1-1.0); BLOOD UREA NITROGEN 10 MG/DL (7-18); BUN/CREATININE RATIO 13.2 (5.4-32.0); CHLORIDE 107 MMOL/L (99-107); CREATININE 0.76 MG/DL (0.60-1.10); GLUCOSE 111 MG/DL (70-104); MAGNESIUM 1.8 MG/DL (1.5-2.4); POTASSIUM 3.2 MMOL/L (3.5-5.1); SODIUM 138 MMOL/L (135-145); TOTAL CARBON DIOXIDE 23.6 MMOL/L (24-32); TOTAL PROTEIN 6.4 G/DL (6.4-8.2); eGFR > 90 ML/MIN
[2018-01-01 07:00] VITALS: BP 127/70
[2018-01-01] MEDS: heparin, porcine 5000 units/ml vial SQ SCH ×2 (07:58→19:54)
[2018-01-01] MEDS: aspirin 81mg tab.chew PO SCH (07:58)
[2018-01-01] MEDS: lactobacillus rhamnosus 10,000 MMU CELLS/CAPSULE PO SCH ×2 (07:58→19:56)
[2018-01-01] MEDS: K and/or MAG REPLACEMENT MC SCH (08:06)
[2018-01-01 11:00] VITALS: BP 129/71
[2018-01-01] MEDS: normal saline 1000ml 1,000 ML IV SCH ×2 (11:37→19:57)
[2018-01-01] MEDS: LORazepam 2 mg/ml vial IV PRN (19:39)
[2018-01-01] MEDS: metoprolol tartrate 25mg tablet PO SCH (19:53)
[2018-01-01] MEDS: atorvastatin 20mg tablet PO SCH (19:56)
[2018-01-01] MEDS: magnesium oxide 400mg tablet PO SCH (19:56)
[2018-01-01 20:00] VITALS: BP 146/93
[2018-01-01] MEDS: vancomycin/NS 1 GM ADD-VANTAGE 250 ML IV SCH (21:47)
[2018-01-02] VITALS: BP 140/83
[2018-01-02 04:54] LABS: BASOPHILS % (AUTO) 0.6 % (0-1); EOSINOPHILS # (AUTO) 0.3 X10'3 (0-0.9); EOSINOPHILS % (AUTO) 3.8 % (0-6); HEMATOCRIT 32.1 % (42.0-52.0); HEMOGLOBIN 10.8 g/dl (14.0-17.9); LYMPHOCYTES # (AUTO) 1.9 X10'3 (1.1-4.8); LYMPHOCYTES % (AUTO) 27.9 % (21-51); MEAN CORPUSCULAR HEMOGLOBIN 31.5 PG (27.0-31.0); MEAN CORPUSCULAR HGB CONC 33.7 % (33.0-36.5); MEAN CORPUSCULAR VOLUME 93.5 FL (78-98); MEAN PLATELET VOLUME 8.6 FL (7.4-10.4); MONOCYTES # (AUTO) 0.5 X10'3 (0-0.9); NEUTROPHILS # (AUTO) 4.1 X10'3 (1.8-7.7); NEUTROPHILS % (AUTO) 60.7 % (42-75); PLATELET COUNT 242 X10'3 (140-440); RED BLOOD COUNT 3.43 X10'6 (4.70-6.10); RED CELL DISTRIBUTION WIDTH 15.3 % (11.5-14.5); WHITE BLOOD COUNT 6.7 X10'3 (4.5-11.0)
[2018-01-02 05:13] LABS: ALANINE AMINOTRANSFERASE 9 U/L (12-78); ALBUMIN 2.9 G/DL (3.4-5.0); ALBUMIN/GLOBULIN RATIO 0.6 (1.1-1.5); ALKALINE PHOSPHATASE 42 IU/L (46-116); ANION GAP 6 (8-16); BILIRUBIN,TOTAL 0.5 MG/DL (0.1-1.0); BLOOD UREA NITROGEN 7 MG/DL (7-18); BUN/CREATININE RATIO 9.2 (5.4-32.0); CALCIUM 8.7 MG/DL (8.5-10.1); CHLORIDE 106 MMOL/L (99-107); CREATININE 0.76 MG/DL (0.60-1.10); GLUCOSE 84 MG/DL (70-104); MAGNESIUM 1.8 MG/DL (1.5-2.4); SODIUM 138 MMOL/L (135-145); TOTAL CARBON DIOXIDE 26.2 MMOL/L (24-32); TOTAL PROTEIN 7.5 G/DL (6.4-8.2); eGFR > 90 ML/MIN
[2018-01-02 05:30] LABS: ASPARTATE AMINO TRANSFERASE 27 U/L (10-37); POTASSIUM 4.7 MMOL/L (3.5-5.1)
[2018-01-02] MEDS: LORazepam 2 mg/ml vial IV PRN (05:31)
[2018-01-02 07:45] VITALS: BP 114/88
[2018-01-02] MEDS: K and/or MAG REPLACEMENT MC SCH (08:00)
[2018-01-02] MEDS: heparin, porcine 5000 units/ml vial SQ SCH ×2 (08:21→21:00)
[2018-01-02] MEDS: lactobacillus rhamnosus 10,000 MMU CELLS/CAPSULE PO SCH ×2 (08:21→21:00)
[2018-01-02] MEDS: aspirin 81mg tab.chew PO SCH (08:21)
[2018-01-02] MEDS: normal saline 1000ml 1,000 ML IV SCH ×2 (10:46→17:30)
[2018-01-02] MEDS: HYDROcodone/acetaminophen 5mg/325mg tablet PO PRN ×2 (10:46→16:48)
[2018-01-02 11:00] VITALS: BP 132/80
[2018-01-02 18:00] VITALS: BP 115/59
[2018-01-02] MEDS ORDERED: VANCOMYCIN LEVEL IV ONE (20:30)
[2018-01-02] MEDS: magnesium oxide 400mg tablet PO SCH (20:59)
[2018-01-02] MEDS: atorvastatin 20mg tablet PO SCH (21:00)
[2018-01-02] MEDS: metoprolol tartrate 25mg tablet PO SCH (21:00)
[2018-01-03] VITALS: BP 125/73
[2018-01-03] MEDS: HYDROcodone/acetaminophen 5mg/325mg tablet PO PRN ×2 (01:19→20:31)
[2018-01-03 06:05] LABS: BASOPHILS # (AUTO) 0.1 X10'3 (0-0.2); BASOPHILS % (AUTO) 1.8 % (0-1); EOSINOPHILS # (AUTO) 0.3 X10'3 (0-0.9); EOSINOPHILS % (AUTO) 4.7 % (0-6); HEMOGLOBIN 11.2 g/dl (14.0-17.9); LYMPHOCYTES # (AUTO) 1.6 X10'3 (1.1-4.8); LYMPHOCYTES % (AUTO) 26.3 % (21-51); MEAN CORPUSCULAR HEMOGLOBIN 31.3 PG (27.0-31.0); MEAN CORPUSCULAR VOLUME 92.1 FL (78-98); MONOCYTES # (AUTO) 0.5 X10'3 (0-0.9); MONOCYTES % (AUTO) 8.7 % (2-12); NEUTROPHILS # (AUTO) 3.5 X10'3 (1.8-7.7); NEUTROPHILS % (AUTO) 58.5 % (42-75); PLATELET COUNT 227 X10'3 (140-440); RED BLOOD COUNT 3.59 X10'6 (4.70-6.10); RED CELL DISTRIBUTION WIDTH 15.3 % (11.5-14.5); WHITE BLOOD COUNT 6.1 X10'3 (4.5-11.0)
[2018-01-03 07:00] VITALS: BP 112/58
[2018-01-03] MEDS: K and/or MAG REPLACEMENT MC SCH (08:00)
[2018-01-03] MEDS: aspirin 81mg tab.chew PO SCH (08:24)
[2018-01-03] MEDS: fluconazole 100mg tablet PO SCH (08:24)
[2018-01-03] MEDS: heparin, porcine 5000 units/ml vial SQ SCH ×2 (08:24→20:30)
[2018-01-03] MEDS: lactobacillus rhamnosus 10,000 MMU CELLS/CAPSULE PO SCH ×2 (08:24→20:30)
[2018-01-03 10:13] LABS: ALANINE AMINOTRANSFERASE 15 U/L (12-78); ALBUMIN 3.1 G/DL (3.4-5.0); ALBUMIN/GLOBULIN RATIO 0.7 (1.1-1.5); ALKALINE PHOSPHATASE 50 IU/L (46-116); ANION GAP 10 (8-16); ASPARTATE AMINO TRANSFERASE 23 U/L (10-37); BILIRUBIN,TOTAL 0.4 MG/DL (0.1-1.0); BLOOD UREA NITROGEN 9 MG/DL (7-18); BUN/CREATININE RATIO 11.3 (5.4-32.0); CHLORIDE 103 MMOL/L (99-107); GLUCOSE 89 MG/DL (70-104); MAGNESIUM 1.9 MG/DL (1.5-2.4); SODIUM 138 MMOL/L (135-145); TOTAL CARBON DIOXIDE 25.5 MMOL/L (24-32); TOTAL PROTEIN 7.7 G/DL (6.4-8.2); eGFR > 90 ML/MIN
[2018-01-03 10:14] LABS: POTASSIUM 3.9 MMOL/L (3.5-5.1)
[2018-01-03 11:54] VITALS: BP 125/65
[2018-01-03] MEDS: LORazepam 0.5 MG tablet PO PRN (13:59)
[2018-01-03] MEDS: normal saline 1000ml 1,000 ML IV SCH (13:59)
[2018-01-03] MEDS: cyclobenzaprine 10mg tablet PO SCH (15:56)
[2018-01-03 18:00] VITALS: BP 121/62
[2018-01-03] MEDS: metoprolol tartrate 25mg tablet PO SCH (20:00)
[2018-01-03] MEDS: magnesium oxide 400mg tablet PO SCH (20:31)
[2018-01-03] MEDS: atorvastatin 20mg tablet PO SCH (20:31)
[2018-01-04] VITALS: BP 115/69
[2018-01-04] MEDS: cyclobenzaprine 10mg tablet PO SCH ×4 (00:37→23:38)
[2018-01-04 05:49] LABS: BASOPHILS % (AUTO) 0.2 % (0-1); EOSINOPHILS # (AUTO) 0.2 X10'3 (0-0.9); EOSINOPHILS % (AUTO) 4.2 % (0-6); HEMATOCRIT 30.1 % (42.0-52.0); HEMOGLOBIN 10.2 g/dl (14.0-17.9); LYMPHOCYTES # (AUTO) 1.9 X10'3 (1.1-4.8); LYMPHOCYTES % (AUTO) 34.5 % (21-51); MEAN CORPUSCULAR HEMOGLOBIN 31.1 PG (27.0-31.0); MEAN CORPUSCULAR HGB CONC 33.8 % (33.0-36.5); MEAN CORPUSCULAR VOLUME 92.3 FL (78-98); MEAN PLATELET VOLUME 7.6 FL (7.4-10.4); MONOCYTES # (AUTO) 0.5 X10'3 (0-0.9); MONOCYTES % (AUTO) 8.9 % (2-12); NEUTROPHILS # (AUTO) 2.9 X10'3 (1.8-7.7); NEUTROPHILS % (AUTO) 52.2 % (42-75); PLATELET COUNT 253 X10'3 (140-440); RED BLOOD COUNT 3.26 X10'6 (4.70-6.10); RED CELL DISTRIBUTION WIDTH 15.1 % (11.5-14.5); WHITE BLOOD COUNT 5.5 X10'3 (4.5-11.0)
[2018-01-04 06:00] VITALS: BP 138/78
[2018-01-04 06:09] LABS: ALANINE AMINOTRANSFERASE 14 U/L (12-78); ALBUMIN 2.7 G/DL (3.4-5.0); ALBUMIN/GLOBULIN RATIO 0.7 (1.1-1.5); ALKALINE PHOSPHATASE 41 IU/L (46-116); ANION GAP 6 (8-16); ASPARTATE AMINO TRANSFERASE 18 U/L (10-37); BILIRUBIN,TOTAL 0.3 MG/DL (0.1-1.0); BLOOD UREA NITROGEN 11 MG/DL (7-18); BUN/CREATININE RATIO 14.3 (5.4-32.0); CALCIUM 8.5 MG/DL (8.5-10.1); CHLORIDE 104 MMOL/L (99-107); CREATININE 0.77 MG/DL (0.60-1.10); GLUCOSE 95 MG/DL (70-104); POTASSIUM 3.7 MMOL/L (3.5-5.1); SODIUM 136 MMOL/L (135-145); TOTAL CARBON DIOXIDE 25.6 MMOL/L (24-32); TOTAL PROTEIN 6.8 G/DL (6.4-8.2); eGFR > 90 ML/MIN
[2018-01-04] MEDS: K and/or MAG REPLACEMENT MC SCH (08:00)
[2018-01-04] MEDS: lactobacillus rhamnosus 10,000 MMU CELLS/CAPSULE PO SCH ×2 (08:46→20:04)
[2018-01-04] MEDS: aspirin 81mg tab.chew PO SCH (08:46)
[2018-01-04] MEDS: fluconazole 100mg tablet PO SCH (08:46)
[2018-01-04] MEDS: heparin, porcine 5000 units/ml vial SQ SCH ×2 (08:47→20:05)
[2018-01-04] MEDS: HYDROcodone/acetaminophen 5mg/325mg tablet PO PRN (08:47)
[2018-01-04] MEDS: LORazepam 0.5 MG tablet PO PRN (10:12)
[2018-01-04 11:00] VITALS: BP 112/56
[2018-01-04] MEDS: normal saline 1000ml 1,000 ML IV SCH (16:57)
[2018-01-04 20:00] VITALS: BP 132/72
[2018-01-04] MEDS: metoprolol tartrate 25mg tablet PO SCH (20:04)
[2018-01-04] MEDS: atorvastatin 20mg tablet PO SCH (20:04)
[2018-01-04] MEDS: magnesium oxide 400mg tablet PO SCH (20:04)
[2018-01-05] VITALS: BP 138/78
[2018-01-05 07:39] VITALS: BP 153/87
[2018-01-05] MEDS: K and/or MAG REPLACEMENT MC SCH (07:54)
[2018-01-05] MEDS: heparin, porcine 5000 units/ml vial SQ SCH ×2 (07:59→21:10)
[2018-01-05] MEDS: cyclobenzaprine 10mg tablet PO SCH ×2 (07:59→16:55)
[2018-01-05] MEDS: lactobacillus rhamnosus 10,000 MMU CELLS/CAPSULE PO SCH ×2 (07:59→21:10)
[2018-01-05] MEDS: aspirin 81mg tab.chew PO SCH (07:59)
[2018-01-05] MEDS: fluconazole 100mg tablet PO SCH (08:02)
[2018-01-05 12:03] VITALS: BP 119/65
[2018-01-05 19:30] VITALS: BP 136/71
[2018-01-05] MEDS: magnesium oxide 400mg tablet PO SCH (21:09)
[2018-01-05] MEDS: metoprolol tartrate 25mg tablet PO SCH (21:09)
[2018-01-05] MEDS: atorvastatin 20mg tablet PO SCH (21:09)
[2018-01-06] VITALS: BP 136/74
[2018-01-06] MEDS: cyclobenzaprine 10mg tablet PO SCH ×4 (00:52→23:59)
[2018-01-06] MEDS: normal saline 1000ml 1,000 ML IV SCH (02:57)
[2018-01-06] MEDS: K and/or MAG REPLACEMENT MC SCH (06:29)
[2018-01-06] MEDS: aspirin 81mg tab.chew PO SCH (07:03)
[2018-01-06] MEDS: lactobacillus rhamnosus 10,000 MMU CELLS/CAPSULE PO SCH ×2 (07:03→20:51)
[2018-01-06] MEDS: heparin, porcine 5000 units/ml vial SQ SCH ×2 (07:04→20:51)
[2018-01-06] MEDS: fluconazole 100mg tablet PO SCH (07:04)
[2018-01-06 08:48] VITALS: BP 123/74
[2018-01-06 11:37] VITALS: BP 107/62
[2018-01-06 20:00] VITALS: BP 119/54
[2018-01-06] MEDS: metoprolol tartrate 25mg tablet PO SCH (20:51)
[2018-01-06] MEDS: atorvastatin 20mg tablet PO SCH (20:51)
[2018-01-06] MEDS: magnesium oxide 400mg tablet PO SCH (20:51)
[2018-01-07] VITALS: BP 113/61
[2018-01-07] MEDS: lactobacillus rhamnosus 10,000 MMU CELLS/CAPSULE PO SCH (07:35)
[2018-01-07] MEDS: cyclobenzaprine 10mg tablet PO SCH (07:35)
[2018-01-07] MEDS: fluconazole 100mg tablet PO SCH (07:35)
[2018-01-07] MEDS: aspirin 81mg tab.chew PO SCH (07:35)
[2018-01-07] MEDS: heparin, porcine 5000 units/ml vial SQ SCH (07:36)
[2018-01-07] MEDS: K and/or MAG REPLACEMENT MC SCH (08:00)
[2018-01-07 08:16] VITALS: BP 116/78
[2018-01-07 11:38] VITALS: BP 120/63
[2018-01-07] MEDS ORDERED: FLUC100T PO (12:15)
== END 2018-01-07 16:23 | disposition home health service (06) | DRG 698 ==
LOC: ER 12:53 → ED HOLD 16:43 → SUR 3N 21:20 → CMPBEDREQ 21:47 → SUR 3N 12-31 19:30
PROVIDERS: ADMIT Family Medicine; ATTEND Family Medicine
DX: T83.518A Infection and inflammatory reaction due to other urinary catheter, initial encounter (principal); G93.41 Metabolic encephalopathy; E51.2 Wernicke's encephalopathy; G91.2 (Idiopathic) normal pressure hydrocephalus; B37.49 Other urogenital candidiasis; E44.0 Moderate protein-calorie malnutrition; Z68.1 Body mass index [BMI] 19.9 or less, adult; D64.9 Anemia, unspecified; E78.5 Hyperlipidemia, unspecified; E86.0 Dehydration; F03.90 Unspecified dementia, unspecified severity, without behavioral disturbance, psychotic disturbance, mood disturbance, and anxiety; I10 Essential (primary) hypertension; Y73.3 Surgical instruments, materials and gastroenterology and urology devices (including sutures) associated with adverse incidents; I25.10 Atherosclerotic heart disease of native coronary artery without angina pectoris; I48.91 Unspecified atrial fibrillation; M48.02 Spinal stenosis, cervical region; Z86.14 Personal history of Methicillin resistant Staphylococcus aureus infection; Z95.1 Presence of aortocoronary bypass graft; I25.2 Old myocardial infarction; Z91.041 Radiographic dye allergy status; Z79.899 Other long term (current) drug therapy; Z79.82 Long term (current) use of aspirin; Y92.89 Other specified places as the place of occurrence of the external cause
CPT/HCPCS: 36415; 70450; 71045; 80053; 80202; 81001; 83605; 83735; 85025; 87070; 87088; 92616; 96360; 97110; 97161; 97530; 99285; A6212; A6213; A6250; J0696; J1200; J1644; J2060; J3370; J3480; J7030

== ENCOUNTER 2018-05-26 10:03 | Emergency (ER) | payer MEDICARE, OTHER ==
[~2018-05-26] VITALS: Ht 170.2 cm; Wt 49.5 kg
[~2018-05-26 10:03] MED LIST changes: +ASPI-1265 PO; +HYDR-3965 PO; +LORA-269 PO; -OMEP40CA37 PO; -POLY119P2 PO; +SIMV20TA5 PO; -SIMV40TA PO
--- NOTE | 2018-05-26 11:17 | NUR ---
F/C PLACED BY VICK SESAY. NOT ENOUGH URINE TO SEND UA. PA AWARE.
[2018-05-26 11:34] LABS: CLARITY,URINE SLIGHTLY CLOUDY (Clear); COLOR,URINE STRAW (Yellow); GLUCOSE, URINE NEGATIVE (Neg); KETONES,URINE NEGATIVE (Neg); LEUKOCYTE ESTERASE ,URINE NEGATIVE (Neg); NITRITES, URINE NEGATIVE (Neg); OCCULT BLOOD,URINE SMALL (Neg); PH,URINE 6.5 (4.8-8.0); PROTEIN,URINE NEGATIVE (Neg); UROBILINOGEN,URINE 0.2 E.U/dL (0.2-1.0)
[2018-05-26 11:36] LABS: UA COLLECTION TYPE FOLEY CATH
[2018-05-26 11:40] LABS: BASOPHILS % (AUTO) 0.5 % (0-1); EOSINOPHILS # (AUTO) 0.2 X10'3 (0-0.9); EOSINOPHILS % (AUTO) 4.3 % (0-6); HEMATOCRIT 35.3 % (42.0-52.0); HEMOGLOBIN 11.8 g/dl (14.0-17.9); LYMPHOCYTES # (AUTO) 1.3 X10'3 (1.1-4.8); LYMPHOCYTES % (AUTO) 28.8 % (21-51); MEAN CORPUSCULAR HEMOGLOBIN 32.4 PG (27.0-31.0); MEAN CORPUSCULAR HGB CONC 33.4 % (33.0-36.5); MEAN CORPUSCULAR VOLUME 97.1 FL (78-98); MEAN PLATELET VOLUME 7.1 FL (7.4-10.4); MONOCYTES # (AUTO) 0.3 X10'3 (0-0.9); NEUTROPHILS # (AUTO) 2.6 X10'3 (1.8-7.7); NEUTROPHILS % (AUTO) 59.4 % (42-75); PLATELET COUNT 340 X10'3 (140-440); RED BLOOD COUNT 3.63 X10'6 (4.70-6.10); RED CELL DISTRIBUTION WIDTH 15.3 % (11.5-14.5); WHITE BLOOD COUNT 4.4 X10'3 (4.5-11.0)
[2018-05-26 11:40] LABS: MUCUS STRANDS MODERATE /LPF (Neg); SQUAMOUS EPITHELIAL CELL,UR FEW /LPF (FEW); TRANSITIONAL EPI CELLS,URINE FEW /HPF; YEAST FEW /HPF (NEGATIVE)
[2018-05-26 11:41] LABS: RENAL CELLS, URINE FEW /HPF
[2018-05-26 11:42] LABS: BACTERIA,URINE NONE SEEN /HPF (Neg)
[2018-05-26 11:47] LABS: ALANINE AMINOTRANSFERASE 22 U/L (12-78); ALBUMIN 3.3 G/DL (3.4-5.0); ALBUMIN/GLOBULIN RATIO 0.7 (1.1-1.5); ALKALINE PHOSPHATASE 56 IU/L (46-116); ANION GAP 11 (8-16); ASPARTATE AMINO TRANSFERASE 25 U/L (10-37); BILIRUBIN,TOTAL 0.4 MG/DL (0.1-1.0); BLOOD UREA NITROGEN 11 MG/DL (7-18); BUN/CREATININE RATIO 16.2 (5.4-32.0); CALCIUM 8.8 MG/DL (8.5-10.1); CHLORIDE 103 MMOL/L (99-107); CREATININE 0.68 MG/DL (0.60-1.10); GLUCOSE 87 MG/DL (70-104); POTASSIUM 3.6 MMOL/L (3.5-5.1); SODIUM 140 MMOL/L (135-145); TOTAL CARBON DIOXIDE 26.2 MMOL/L (24-32); TOTAL PROTEIN 7.9 G/DL (6.4-8.2); eGFR > 90 ML/MIN
[2018-05-26 12:33] VITALS: BP 140/70
== END 2018-05-26 12:37 | disposition home or self-care (01) ==
LOC: ER 10:04
DX: T83.9XXA Unspecified complication of genitourinary prosthetic device, implant and graft, initial encounter (principal); R33.9 Retention of urine, unspecified; I48.91 Unspecified atrial fibrillation; I25.10 Atherosclerotic heart disease of native coronary artery without angina pectoris; I10 Essential (primary) hypertension; I25.2 Old myocardial infarction; Z46.6 Encounter for fitting and adjustment of urinary device; Z95.1 Presence of aortocoronary bypass graft; Z91.041 Radiographic dye allergy status; Z79.82 Long term (current) use of aspirin; Z79.899 Other long term (current) drug therapy; Y84.6 Urinary catheterization as the cause of abnormal reaction of the patient, or of later complication, without mention of misadventure at the time of the procedure; Y92.89 Other specified places as the place of occurrence of the external cause
CPT/HCPCS: 36415; 51702; 80053; 81001; 85025; 87088; 99284

== ENCOUNTER 2018-06-10 11:16 | Emergency (ER) | payer MEDICARE, OTHER ==
[~2018-06-10] VITALS: Ht 170.2 cm; Wt 49.0 kg
[2018-06-10 11:59] LABS: BASOPHILS % (AUTO) 0.2 % (0-1); EOSINOPHILS # (AUTO) 0.1 X10'3 (0-0.9); EOSINOPHILS % (AUTO) 1.6 % (0-6); HEMATOCRIT 33.2 % (42.0-52.0); HEMOGLOBIN 11.1 g/dl (14.0-17.9); LYMPHOCYTES % (AUTO) 17.4 % (21-51); MEAN CORPUSCULAR HEMOGLOBIN 32.4 PG (27.0-31.0); MEAN CORPUSCULAR HGB CONC 33.4 g/dL (33.0-36.5); MEAN CORPUSCULAR VOLUME 97.2 FL (78-98); MEAN PLATELET VOLUME 7.5 FL (7.4-10.4); MONOCYTES # (AUTO) 0.4 X10'3 (0-0.9); NEUTROPHILS # (AUTO) 4.4 X10'3 (1.8-7.7); NEUTROPHILS % (AUTO) 74.8 % (42-75); PLATELET COUNT 325 X10'3 (140-440); RED BLOOD COUNT 3.41 X10'6 (4.70-6.10); RED CELL DISTRIBUTION WIDTH 14.6 % (11.5-14.5); WHITE BLOOD COUNT 5.8 X10'3 (4.5-11.0)
[2018-06-10 12:10] LABS: CLARITY,URINE SLIGHTLY CLOUDY (Clear); COLOR,URINE YELLOW (Yellow); GLUCOSE, URINE NEGATIVE (Neg); KETONES,URINE TRACE mg/dl (Neg); LEUKOCYTE ESTERASE ,URINE SMALL (Neg); NITRITES, URINE NEGATIVE (Neg); OCCULT BLOOD,URINE NEGATIVE (Neg); PROTEIN,URINE NEGATIVE (Neg); UROBILINOGEN,URINE 0.2 E.U/dL (0.2-1.0)
[2018-06-10 12:16] LABS: ALANINE AMINOTRANSFERASE 16 U/L (12-78); ALBUMIN 3.1 G/DL (3.4-5.0); ALBUMIN/GLOBULIN RATIO 0.7 (1.1-1.5); ALKALINE PHOSPHATASE 55 IU/L (46-116); ANION GAP 10 (8-16); ASPARTATE AMINO TRANSFERASE 16 U/L (10-37); BILIRUBIN,TOTAL 0.4 MG/DL (0.1-1.0); BLOOD UREA NITROGEN 10 MG/DL (7-18); CALCIUM 8.9 MG/DL (8.5-10.1); CHLORIDE 101 MMOL/L (99-107); CREATININE 0.83 MG/DL (0.60-1.10); GLUCOSE 96 MG/DL (70-104); INR 1.1 INR; PARTIAL THROMBOPLASTIN TIME 30 SECONDS (22-32); POTASSIUM 4.1 MMOL/L (3.5-5.1); PROTHROMBIN TIME 10.8 SECONDS (9.0-12.0); SODIUM 137 MMOL/L (135-145); TOTAL CARBON DIOXIDE 25.9 MMOL/L (24-32); TOTAL PROTEIN 7.7 G/DL (6.4-8.2); eGFR 90 ML/MIN
[2018-06-10 12:26] LABS: UA COLLECTION TYPE FOLEY CATH
[2018-06-10 12:34] LABS: MUCUS STRANDS FEW /LPF (Neg); SQUAMOUS EPITHELIAL CELL,UR FEW /LPF (FEW)
[2018-06-10 12:35] LABS: BACTERIA,URINE FEW /HPF (Neg); CAL OXALATE CRYSTALS FEW /HPF (NEGATIVE); WBC CLUMPS,URINE MANY /HPF (NEGATIVE)
[2018-06-10 12:36] LABS: YEAST MODERATE /HPF (NEGATIVE)
[2018-06-10] MEDS ORDERED: CefTRIAXone/D5W-Rocephin 1gm 50 ML IV ONE (12:55)
[2018-06-10] MEDS ORDERED: LEVO750T21 PO (13:03)
--- NOTE | 2018-06-10 13:44 | NUR ---
harry removed and replaced with a 16 fr harry catheter. draining clear yellow urine.
[2018-06-10 13:56] VITALS: BP 138/88
== END 2018-06-10 13:57 | disposition home or self-care (01) ==
LOC: ER 11:16
DX: N39.0 Urinary tract infection, site not specified (principal); I25.10 Atherosclerotic heart disease of native coronary artery without angina pectoris; I10 Essential (primary) hypertension; I25.2 Old myocardial infarction; I48.91 Unspecified atrial fibrillation; Z88.8 Allergy status to other drugs, medicaments and biological substances; Z79.82 Long term (current) use of aspirin; Z79.899 Other long term (current) drug therapy
CPT/HCPCS: 36415; 51702; 71045; 80053; 81001; 84484; 85025; 85610; 85730; 87088; 93005; 96365; 99284; J0696; 87077; 87186

== ENCOUNTER 2018-07-02 12:55 | Emergency (ER) | payer MEDICARE, OTHER ==
[~2018-07-02] VITALS: Ht 170.2 cm; Wt 51.8 kg
[2018-07-02 13:37] VITALS: BP 107/58
== END 2018-07-02 20:16 | disposition left against medical advice (07) ==
LOC: ER 12:56
DX: N48.89 Other specified disorders of penis (principal); Z53.21 Procedure and treatment not carried out due to patient leaving prior to being seen by health care provider